=== PATIENT | female | born 1965 | race Caucasian/White ===

== ENCOUNTER 2016-12-28 12:38 | Inpatient (IN) | payer OTHER ==
[~2016-12-28] VITALS: Ht 170.2 cm; Wt 135.3 kg
[2016-12-28 15:20] LABS: ALBUMIN 3.6 g/dL (3.4-5.0); ALKALINE PHOSPHATASE 95 U/L (46-116); ALT/SGPT 25 U/L (14-59); AST/SGOT 14 U/L (15-37); BILIRUBIN TOTAL 0.5 mg/dL (0.20-1.00); CALCIUM 9.6 mg/dL (8.5-10.1); CHLORIDE SERUM 103 mmol/L (98-107); CREATININE SERUM 0.7 mg/dL (0.6-1.0); GFR1 > 60 mL/min; GLUCOSE SERUM 224 mg/dL (74-106); POTASSIUM SERUM 4.3 mmol/L (3.5-5.1); SODIUM SERUM 141 mmol/L (136-145); TOTAL PROTEIN, SERUM 7.8 g/dL (6.4-8.2)
[2016-12-28 15:31] LABS: PLATELET COUNT 229 x10^3mcL (130-400); RED CELL DISTRIBUTION WIDTH 13.9 % (11.5-14.5)
[2016-12-28 16:30] LABS: BAND NEUTROPHIL 1 % (0-10); BASOPHIL 0 % (0-2); MONOCYTE 4 % (0-7); PLATELET MORPHOLOGY PLATELETS NORMAL; SEGMENTED NEUTROPHILS 61 % (37-75)
[2016-12-28] MEDS ORDERED: METFORMIN HCL500 MG PO (16:32)
[2016-12-28 18:48] LABS: CHOLESTEROL/HDL RATIO 5.3
[2016-12-28 18:52] LABS: T3 TOTAL 1.03 ng/mL
[2016-12-28 18:56] LABS: FREE T4 1.01 ng/dL (0.76-1.46); FREE THYROXINE INDEX 2.3 ug/dL (1.4-4.5); T4(THYROXINE) 7.3 ug/dL (4.7-13.3)
[2016-12-28 19:21] VITALS: BP 117/80
[2016-12-28 21:06] VITALS: BP 114/62
[2016-12-29] VITALS (17 sets, daily range): BP systolic 100–126; BP diastolic 44–76; Ht 170.2 cm; Wt 135.3 kg
[2016-12-29 02:58] LABS: microscopic required? NO
[2016-12-29 03:20] LABS: UA SPECIFIC GRAVITY >=1.030 (1.005-1.035); urine erythrocyte NEGATIVE (NEGATIVE)
[2016-12-29 03:35] LABS: AMPHETAMINE QUAL UR NONE DETECTED (NEG <=1000)
[2016-12-29 10:51] LABS: BASOPHIL % 0.4 % (0-2); PLATELET COUNT 192 x10^3mcL (130-400); RED CELL DISTRIBUTION WIDTH 13.7 % (11.5-14.5)
[2016-12-30 05:24] VITALS: BP 93/53
[2016-12-30 07:50] VITALS: BP 93/53
[2016-12-30 09:27] VITALS: BP 107/44
[2016-12-30] MEDS ORDERED: ZES5 PO (10:11)
[2016-12-30] MEDS ORDERED: ECO81 PO (10:12)
[2016-12-30] MEDS ORDERED: LIPI10 PO (10:12)
== END 2016-12-30 10:55 | disposition home or self-care (01) | DRG 191 ==
LOC: ED 12:38 → DU 16:52
PROVIDERS: Emergency Medicine; Internal Medicine Interventional Cardiology; ADMIT Family Medicine
PROC: B2111ZZ Fluoroscopy of Multiple Coronary Arteries using Low Osmolar Contrast (ICD-10-PCS; 2016-12-29)
PROC: B2151ZZ Fluoroscopy of Left Heart using Low Osmolar Contrast (ICD-10-PCS; 2016-12-29)
PROC: 4A023N7 Measurement of Cardiac Sampling and Pressure, Left Heart, Percutaneous Approach (ICD-10-PCS; principal; 2016-12-29 13:30)
DX: M94.0 Chondrocostal junction syndrome [Tietze] (principal); E11.65 Type 2 diabetes mellitus with hyperglycemia; F17.210 Nicotine dependence, cigarettes, uncomplicated; Z71.3 Dietary counseling and surveillance; Z68.42 Body mass index [BMI] 45.0-49.9, adult; E66.01 Morbid (severe) obesity due to excess calories; F43.9 Reaction to severe stress, unspecified
CPT/HCPCS: CLHCL; 80307; 82962; 83880; 84439; C1769; C1887; C1894; G0480; J1644; J2001; J2250; J2270; J3010; J3490; J7030; J7040; J7613; Q0092; Q0177; Q9967

== ENCOUNTER 2017-01-03 02:10 | Emergency (ER) | payer OTHER ==
[~2017-01-03] VITALS: Ht 170.2 cm; Wt 142.0 kg
[~2017-01-03 02:10] MED LIST: ECO81 PO; LIPI10 PO; METFORMIN HCL500 MG PO; ZES5 PO
[2017-01-03 03:34] LABS: PLATELET COUNT 205 x10^3mcL (130-400); RED CELL DISTRIBUTION WIDTH 12.8 % (11.5-14.5)
[2017-01-03 03:40] LABS: CALCIUM 9.1 mg/dL (8.5-10.1); CARBON DIOXIDE 28.2 mmol/L (21-32); CHLORIDE SERUM 101 mmol/L (98-107); CREATININE SERUM 0.7 mg/dL (0.6-1.0); GFR1 > 60 mL/min; GLUCOSE SERUM 235 mg/dL (74-106); SODIUM SERUM 139 mmol/L (136-145)
[2017-01-03 03:46] LABS: ALBUMIN 3.2 g/dL (3.4-5.0); ALKALINE PHOSPHATASE 81 U/L (46-116); ALT/SGPT 41 U/L (14-59); AST/SGOT 18 U/L (15-37); BILIRUBIN TOTAL 0.3 mg/dL (0.20-1.00); TOTAL PROTEIN, SERUM 6.8 g/dL (6.4-8.2)
[2017-01-03 03:49] LABS: BASOPHIL % 2.6 % (0-2)
[2017-01-03 06:09] VITALS: BP 122/77
[2017-01-04] MEDS ORDERED: NOR5 PO (14:46)
[2017-01-04] MEDS ORDERED: ISO10 PO (14:46)
== END 2017-01-03 06:09 | disposition home or self-care (01) ==
LOC: ED 02:10
PROVIDERS: Emergency Medicine
DX: M79.642 Pain in left hand (principal); M79.641 Pain in right hand; E78.5 Hyperlipidemia, unspecified; E11.9 Type 2 diabetes mellitus without complications; I21.4 Non-ST elevation (NSTEMI) myocardial infarction
CPT/HCPCS: J1170; J3010; Q0092

== ENCOUNTER 2017-01-03 12:26 | Inpatient (IN) | payer OTHER ==
[~2017-01-03] VITALS: Ht 170.2 cm; Wt 143.5 kg
[2017-01-03 14:26] LABS: BASOPHIL % 0.5 % (0-2); PLATELET COUNT 194 x10^3mcL (130-400); RED CELL DISTRIBUTION WIDTH 13.8 % (11.5-14.5)
[2017-01-03 14:38] LABS: CALCIUM 8.9 mg/dL (8.5-10.1); CARBON DIOXIDE 27.5 mmol/L (21-32); CHLORIDE SERUM 103 mmol/L (98-107); CREATININE SERUM 0.7 mg/dL (0.6-1.0); GFR1 > 60 mL/min; GLUCOSE SERUM 216 mg/dL (74-106); POTASSIUM SERUM 4.2 mmol/L (3.5-5.1); SODIUM SERUM 139 mmol/L (136-145)
[2017-01-03 14:42] LABS: ALKALINE PHOSPHATASE 85 U/L (46-116); ALT/SGPT 51 U/L (14-59); AST/SGOT 32 U/L (15-37); BILIRUBIN TOTAL 0.55 mg/dL (0.20-1.00)
[2017-01-03 14:49] LABS: ALBUMIN 3.3 g/dL (3.4-5.0)
[2017-01-03 15:25] VITALS: BP 125/55
[2017-01-03 16:45] LABS: LIPASE 89 IU/L (73-393)
[2017-01-03 17:22] VITALS: BP 115/66
[2017-01-03 17:39] LABS: AMYLASE 16 U/L (25-115)
[2017-01-03 22:02] VITALS: BP 102/57
[2017-01-04 00:02] LABS: UA SPECIFIC GRAVITY 1.025 (1.005-1.035); microscopic required? YES; urine erythrocyte NEGATIVE (NEGATIVE)
[2017-01-04 00:10] LABS: AMPHETAMINE QUAL UR NONE DETECTED (NEG <=1000)
[2017-01-04 06:08] VITALS: BP 91/42
[2017-01-04 06:22] LABS: BASOPHIL % 0.5 % (0-2); PLATELET COUNT 195 x10^3mcL (130-400); RED CELL DISTRIBUTION WIDTH 13.8 % (11.5-14.5)
[2017-01-04 07:04] LABS: CALCIUM 8.4 mg/dL (8.5-10.1); CARBON DIOXIDE 25.8 mmol/L (21-32); CHLORIDE SERUM 106 mmol/L (98-107); CREATININE SERUM 0.6 mg/dL (0.6-1.0); GFR1 > 60 mL/min; GLUCOSE SERUM 175 mg/dL (74-106); MAGNESIUM 1.7 mg/dL (1.8-2.4); PHOSPHOROUS 3.7 mg/dL (2.5-4.9); POTASSIUM SERUM 3.9 mmol/L (3.5-5.1); SODIUM SERUM 141 mmol/L (136-145)
[2017-01-04 10:19] VITALS: BP 88/46
[2017-01-04] MEDS ORDERED: NOR5 PO (14:46)
[2017-01-04] MEDS ORDERED: ISO10 PO (14:46)
[2017-01-04 15:22] VITALS: BP 94/41
[2017-01-04 15:35] VITALS: BP 103/55
== END 2017-01-04 16:40 | disposition home or self-care (01) | DRG 203 ==
LOC: ED 12:26 → DU 15:59
PROVIDERS: Emergency Medicine; ADMIT Family Medicine
DX: M94.0 Chondrocostal junction syndrome [Tietze] (principal); E11.42 Type 2 diabetes mellitus with diabetic polyneuropathy; E11.65 Type 2 diabetes mellitus with hyperglycemia; E78.00 Pure hypercholesterolemia, unspecified; I10 Essential (primary) hypertension; Z79.82 Long term (current) use of aspirin; Z87.891 Personal history of nicotine dependence; E66.01 Morbid (severe) obesity due to excess calories; Z68.42 Body mass index [BMI] 45.0-49.9, adult; Z79.84 Long term (current) use of oral hypoglycemic drugs; Z79.899 Other long term (current) drug therapy
CPT/HCPCS: 82962; 83880; G0480; J0696; J1885; J7030; Q0092

== ENCOUNTER 2018-07-08 05:04 | Emergency (ER) | payer MEDICAID ==
[~2018-07-08] VITALS: Ht 170.2 cm; Wt 124.5 kg
[~2018-07-08 05:04] MED LIST changes: +ISO10 PO; +NOR5 PO
[2018-07-08 05:16] VITALS: BP 132/93
== END 2018-07-08 06:05 | disposition home or self-care (01) ==
LOC: ED 05:04
DX: M54.31 Sciatica, right side (principal); E11.9 Type 2 diabetes mellitus without complications; E78.00 Pure hypercholesterolemia, unspecified
CPT/HCPCS: J1885

== ENCOUNTER 2018-07-26 06:13 | Emergency (ER) | payer MEDICAID ==
[~2018-07-26] VITALS: Ht 170.2 cm; Wt 126.6 kg
[2018-07-26 06:25] VITALS: Ht 170.2 cm; Wt 126.6 kg
[2018-07-26 07:00] LABS: microscopic required? NO
[2018-07-26 07:34] LABS: BASOPHIL % 0.5 % (0-2); PLATELET COUNT 224 x10^3mcL (130-400); RED CELL DISTRIBUTION WIDTH 13.3 % (11.5-14.5)
[2018-07-26 07:52] LABS: UA SPECIFIC GRAVITY >=1.030 (1.005-1.035); urine erythrocyte NEGATIVE (NEGATIVE)
[2018-07-26 08:00] LABS: CALCIUM 8.9 mg/dL (8.5-10.1); CHLORIDE SERUM 102 mmol/L (98-107); CREATININE SERUM 0.8 mg/dL (0.6-1.0); GFR1 > 60 mL/min; GLUCOSE SERUM 215 mg/dL (74-106); POTASSIUM SERUM 4.2 mmol/L (3.5-5.1); SODIUM SERUM 138 mmol/L (136-145)
[2018-07-26 08:30] VITALS: BP 142/78
== END 2018-07-26 08:30 | disposition home or self-care (01) ==
LOC: ED 06:13
PROVIDERS: Emergency Medicine
DX: M54.10 Radiculopathy, site unspecified (principal); M54.9 Dorsalgia, unspecified; E11.9 Type 2 diabetes mellitus without complications; E78.00 Pure hypercholesterolemia, unspecified; Z87.19 Personal history of other diseases of the digestive system
CPT/HCPCS: J1885